=== PATIENT | female | born 1990 | race Caucasian/White ===

== ENCOUNTER 2019-06-27 16:43 | Emergency (ER) | payer MEDICAID ==
[~2019-06-27] VITALS: Ht 167.6 cm; Wt 78.0 kg
[2019-06-27 17:02] VITALS: Ht 167.6 cm; Wt 78.0 kg
[2019-06-27 18:07] VITALS: BP 128/96
== END 2019-06-27 18:07 | disposition home or self-care (01) ==
LOC: ED 16:43
DX: S30.854A Superficial foreign body of vagina and vulva, initial encounter (principal); W45.8XXA Other foreign body or object entering through skin, initial encounter; Y93.89 Activity, other specified; Y92.89 Other specified places as the place of occurrence of the external cause; Y99.8 Other external cause status